=== PATIENT | female | born 1950 ===

== ENCOUNTER 2018-09-23 12:37 | Inpatient (IN) | payer MEDICARE ==
[~2018-09-23] VITALS: Ht 165.1 cm; Wt 69.4 kg
[2018-09-23 15:19] VITALS: BP 131/76; BMI 25.5
[2018-09-23] MEDS ORDERED: WELLBUTRIN SR150 MG PO (15:45)
[2018-09-23] MEDS ORDERED: VENTOLIN HFA18 GM INH (15:45)
[2018-09-23] MEDS ORDERED: BUSPAR5 MG PO (15:46)
[2018-09-23] MEDS ORDERED: COREG 3.1253.125 MG PO (15:46)
[2018-09-23] MEDS ORDERED: ESTRACE1 MG PO (15:47)
[2018-09-23] MEDS ORDERED: CYMBALTA60 MG PO (15:47)
[2018-09-23] MEDS ORDERED: NEURONTIN 300300 MG PO (15:47)
[2018-09-23] MEDS ORDERED: IPRAT-ALBUT 0.5-3 ML UPD (15:48)
[2018-09-23] MEDS ORDERED: SYNTHROID100 MCG PO (15:49)
[2018-09-23] MEDS ORDERED: COZAAR100 MG PO (15:49)
[2018-09-23] MEDS ORDERED: NIFEDIPINE60 MG/BOTT PO (15:51)
[2018-09-23] MEDS ORDERED: OXYBUTYNIN CHLOR5 MG PO (15:51)
[2018-09-23 17:35] LABS: BASOPHILS 0.4 % (0-2); EOSINOPHILS 3.4 % (0-7); HEMOGLOBIN 13.6 g/dL (12-16); IMMATURE GRANULOCYTES 0.2 % (0-5); LYMPHOCYTES 29.5 % (15-50); MCH 30.9 pg (26.0-34.0); MCV 90.9 fL (80.0-100.0); MEAN PLATELET VOLUME 10.3 fL (7.4-10.4); MONOCYTES 5.3 % (2-11); NEUTROPHILS 61.2 % (40-80); PLATELET COUNT 227 10x3/uL (130-400); RDW 13.7 % (11.5-14.5); WBC 9.8 10x3/uL (4.8-10.8)
[2018-09-23 18:01] LABS: ALBUMIN 2.9 g/dL (3.4-5.0); ANION GAP 9.8 mmol/L (8-16); BILIRUBIN - TOTAL 0.27 mg/dL (0.2-1.3); CALCIUM 8.5 mg/dL (8.5-10.1); CARBON DIOXIDE 33.6 mmol/L (21.0-32.0); POTASSIUM - SERUM 3.4 mmol/L (3.5-5.1)
[2018-09-23 20:07] VITALS: BP 139/81
[2018-09-24] VITALS: BP 133/76
[2018-09-24 04:58] VITALS: BP 140/75
[2018-09-24 07:08] LABS: BASOPHILS 0.2 % (0-2); EOSINOPHILS 3.5 % (0-7); HEMATOCRIT 38.6 % (36.0-48.0); IMMATURE GRANULOCYTES 0.1 % (0-5); LYMPHOCYTES 20.3 % (15-50); MCH 30.9 pg (26.0-34.0); MCHC 33.7 g/dL (31.0-37.0); MCV 91.7 fL (80.0-100.0); NEUTROPHILS 69.9 % (40-80); PLATELET COUNT 217 10x3/uL (130-400); RBC 4.21 10x6/uL (4.00-5.40); RDW 13.8 % (11.5-14.5); WBC 8.5 10x3/uL (4.8-10.8)
[2018-09-24 07:17] LABS: ALBUMIN 2.8 g/dL (3.4-5.0); ANION GAP 9.8 mmol/L (8-16); BILIRUBIN - TOTAL 0.35 mg/dL (0.2-1.3); CARBON DIOXIDE 32.3 mmol/L (21.0-32.0); CREATININE - SERUM 0.9 mg/dL (0.6-1.3); MAGNESIUM - SERUM 1.9 mg/dL (1.8-2.4); POTASSIUM - SERUM 3.1 mmol/L (3.5-5.1); PROTEIN - SERUM 6.2 g/dL (6.4-8.2)
[2018-09-24 11:19] VITALS: BP 154/89
[2018-09-24 11:34] VITALS: BP 139/80
[2018-09-24 14:07] VITALS: Ht 165.1 cm; Wt 69.4 kg
[2018-09-24 16:47] VITALS: BP 157/72
[2018-09-24 20:00] VITALS: BP 156/92
[2018-09-25] VITALS (7 sets, daily range): BP systolic 105–187; BP diastolic 57–97
[2018-09-25 06:25] LABS: BASOPHILS 0.2 % (0-2); EOSINOPHILS 3.8 % (0-7); HEMATOCRIT 38.6 % (36.0-48.0); HEMOGLOBIN 12.9 g/dL (12-16); IMMATURE GRANULOCYTES 0.2 % (0-5); LYMPHOCYTES 23.4 % (15-50); MCH 30.9 pg (26.0-34.0); MCHC 33.4 g/dL (31.0-37.0); MCV 92.3 fL (80.0-100.0); MEAN PLATELET VOLUME 11.5 fL (7.4-10.4); MONOCYTES 6.2 % (2-11); NEUTROPHILS 66.2 % (40-80); PLATELET COUNT 211 10x3/uL (130-400); RBC 4.18 10x6/uL (4.00-5.40); RDW 13.9 % (11.5-14.5); WBC 8.3 10x3/uL (4.8-10.8)
[2018-09-25 06:32] LABS: ALBUMIN 2.7 g/dL (3.4-5.0); BILIRUBIN - TOTAL 0.31 mg/dL (0.2-1.3); CALCIUM 8.5 mg/dL (8.5-10.1); CARBON DIOXIDE 31.9 mmol/L (21.0-32.0); CREATININE - SERUM 1.1 mg/dL (0.6-1.3); MAGNESIUM - SERUM 2.1 mg/dL (1.8-2.4); PROTEIN - SERUM 6.5 g/dL (6.4-8.2)
[2018-09-25 06:36] LABS: ANION GAP 11.8 mmol/L (8-16); POTASSIUM - SERUM 3.7 mmol/L (3.5-5.1)
[2018-09-26] VITALS: BP 168/86
[2018-09-26 04:00] VITALS: BP 161/83
[2018-09-26 07:45] LABS: BASOPHILS 0.2 % (0-2); EOSINOPHILS 3.4 % (0-7); HEMATOCRIT 38.6 % (36.0-48.0); HEMOGLOBIN 12.8 g/dL (12-16); IMMATURE GRANULOCYTES 0.1 % (0-5); MCH 30.8 pg (26.0-34.0); MCHC 33.2 g/dL (31.0-37.0); MCV 92.8 fL (80.0-100.0); MEAN PLATELET VOLUME 11.2 fL (7.4-10.4); MONOCYTES 5.5 % (2-11); NEUTROPHILS 69.8 % (40-80); PLATELET COUNT 218 10x3/uL (130-400); RBC 4.16 10x6/uL (4.00-5.40); RDW 14.1 % (11.5-14.5); WBC 8.1 10x3/uL (4.8-10.8)
[2018-09-26 08:17] LABS: ALBUMIN 2.8 g/dL (3.4-5.0); ANION GAP 13.2 mmol/L (8-16); BILIRUBIN - TOTAL 0.26 mg/dL (0.2-1.3); CALCIUM 8.3 mg/dL (8.5-10.1); CARBON DIOXIDE 30.1 mmol/L (21.0-32.0); MAGNESIUM - SERUM 2.2 mg/dL (1.8-2.4); POTASSIUM - SERUM 3.3 mmol/L (3.5-5.1); PROTEIN - SERUM 6.5 g/dL (6.4-8.2)
[2018-09-26 11:33] VITALS: BP 183/91
[2018-09-26] MEDS ORDERED: LINZESS145 MCG PO (12:05)
[2018-09-26] MEDS ORDERED: K-TAB10 MEQ PO (12:05)
[2018-09-26] MEDS ORDERED: REGLAN5 MG PO (12:06)
[2018-09-26] MEDS ORDERED: MIRALAX17 GM PO (12:08)
[2018-09-26] MEDS ORDERED: CARAFATE1 G PO (12:08)
[2018-09-26] MEDS ORDERED: COLACE100 MG PO (12:09)
[2018-09-26] MEDS ORDERED: PROTONIX40 MG PO (12:12)
== END 2018-09-26 16:00 | disposition home or self-care (01) | DRG 389 ==
LOC: D.M3 12:37
PROVIDERS: Family Medicine; ADMIT Internal Medicine Nephrology
DX: K56.7 Ileus, unspecified (principal); F17.213 Nicotine dependence, cigarettes, with withdrawal; K59.00 Constipation, unspecified; I10 Essential (primary) hypertension; J44.9 Chronic obstructive pulmonary disease, unspecified